=== PATIENT | female | born 1990 | race Hispanic/Latino ===

== ENCOUNTER 2017-04-04 20:47 | Emergency (ER) | payer BC ==
[2017-04-04 20:50] VITALS: BMI 22.2
[2017-04-04 20:53] VITALS: BP 133/93; PULSE 109; RESP 16; TEMP 98.5; O2SAT 98
[2017-04-04] MEDS ORDERED: Sodium Chloride 0.9% 1,000 ML IV STA (21:19)
--- NOTE | 2017-04-04 21:37 | ED PDOC ---
HPI: Head Injury Time Seen by Provider: 04/04/17 21:15 Chief Complaint (Nursing): Abnormal Skin Integrity Chief Complaint (Provider): FALL History Per: Patient (26 Y/O FEMALE WITH ETOH INTOXICATION HERE TODAY FOR EVALUATION OF FACIAL INJURY. NO LOC NOTED. PATIENT NOTED TO HAVE JAW PAIN WITH OPENING JAW. NOTES BROKEN DENTITION AND LOWER LIP LACERATION. DENIES ANY LOOSE TEETH.) Past Medical History Reviewed: Historical Data, Nursing Documentation, Vital Signs Vital Signs: Last Vital Signs Temp 98.5 F 04/04/17 20:51 Pulse 109 H 04/04/17 20:51 Resp 16 04/04/17 20:51 BP 133/93 H 04/04/17 20:51 Pulse Ox 98 04/04/17 20:51 - Family History Family History: States: No Known Family Hx - Allergies Allergies/Adverse Reactions: Allergies Allergy/AdvReac Type Severity Reaction Status Date / Time No Known Allergies Allergy Verified 04/04/17 20:50 Review of Systems ROS Statement: Except As Marked, All Systems Reviewed And Found Negative ENT: Positive for: Mouth Pain, Other (LIP LACERATION) Physical Exam - Reviewed Nursing Documentation Reviewed: Yes Vital Signs Reviewed: Yes - Physical Exam Appears: Positive for: Well, Non-toxic, No Acute Distress Head Exam: Positive for: ATRAUMATIC, NORMAL INSPECTION, NORMOCEPHALIC Skin: Positive for: Normal Color, Warm, DRY Eye Exam: Positive for: EOMI, Normal appearance, PERRL ENT: Positive for: Other (JAW TENDERNESS NOTED WITH OPENING CLOSING JAW. BROKEN DENTITION LEFT UPPER FRONT TOOTH; 1.0 CM LIP LACERATION LOWER LIP). Negative for: Normal ENT Inspection Neck: Positive for: Normal, Painless ROM Cardiovascular/Chest: Positive for: Regular Rate, Rhythm Respiratory: Positive for: CNT, Normal Breath Sounds Gastrointestinal/Abdominal: Positive for: Normal Exam, Bowel Sounds, Soft Back: Positive for: Normal Inspection Extremity: Positive for: Normal ROM Neurologic/Psych: Positive for: Alert, Oriented - ECG O2 Sat by Pulse Oximetry: 98 - Progress ED Course And Treament: HEAD CT: IMPRESSION: No acute intracranial hemorrhage, or suspicious mass effect. Thank you for allowing us to participate in the care of your patient. Disposition - Clinical Impression Clinical Impression: Alcohol intoxication, Lip injury - Patient ED Disposition Is Patient to be Admitted: No - Disposition Disposition: Routine/Home Disposition Time: 00:32 Condition: FAIR Instructions: Care For Your Absorbable Stitches (ED), Acute Dental Trauma (ED) Forms: [employer] (E[place]ian) Procedure: Wound Repair - Time Performed Time Performed: 00:30 - Time Out Time Out: Site verified - Consent Obtained Consent obtained: Verbal - Performed by Performed by: Mid-level Provider - Indications Indication(s):: Laceration - Location Location:: Face Shape:: Stellate Dimensions Length cm: 1.0CM Depth:: Epidermis - Anesthetic Technique Anesthetic Technique: Local Local/Regional Anesthetic:: Lidocaine 1% w/epi - Irrigated Irrigated with ml of normal saline: 50ML - Complexity Complexity:: Simple (one layer) - Wound repair method Sutures:: # (FOUR 6-0 VICRYL SUTURES) - Patient tolerated procedure Patient Tolerated Procedure:: Well
--- NOTE | 2017-04-04 23:16 | CT ---
EXAM: CT Head Without Intravenous Contrast CLINICAL HISTORY: 26 years old, female; Injury or trauma; Fall; Initial encounter; Blunt trauma (contusions or hematomas); Additional info: Head injury TECHNIQUE: Axial computed tomography images of the head/brain without intravenous contrast. All CT scans at this facility use one or more dose reduction techniques, viz.: automated exposure control; ma/kV adjustment per patient size (including targeted exams where dose is matched to indication; i.e. head); or iterative reconstruction technique. Coronal and sagittal reformatted images were created and reviewed. COMPARISON: No relevant prior studies available. FINDINGS: Brain: No acute intracranial hemorrhage. No significant white matter disease. No edema. Ventricles: No significant ventriculomegaly. Bones: No acute displaced fracture. Sinuses: Unremarkable as visualized. No acute sinusitis. Mastoid air cells: Unremarkable as visualized. No mastoid effusion. IMPRESSION: No acute intracranial hemorrhage, or suspicious mass effect.
[2017-04-04] MEDS ORDERED: Lidocaine 1% w Epi 1:100,000 Inj INFIL ONE (23:23)
--- NOTE | 2017-04-04 23:39 | CT ---
EXAM: CT Maxillofacial Without Intravenous Contrast CLINICAL HISTORY: 26 years old, female; Injury or trauma; Fall; Initial encounter; Blunt trauma (contusions or hematomas); Jaw; Not specified; Additional info: R/O jaw FX TECHNIQUE: Axial computed tomography images of the face without intravenous contrast. All CT scans at this facility use one or more dose reduction techniques, viz.: automated exposure control; ma/kV adjustment per patient size (including targeted exams where dose is matched to indication; i.e. head); or iterative reconstruction technique. Coronal and sagittal reformatted images were created and reviewed. COMPARISON: No relevant prior studies available. FINDINGS: Bones/joints: No acute fracture. Soft tissues: Symmetric Orbits: Preserved Sinuses: Unremarkable. No air-fluid levels. IMPRESSION: No acute fracture, as detailed above.
--- NOTE | 2017-04-04 23:40 | CT ---
EXAM: CT Cervical Spine Without Intravenous Contrast CLINICAL HISTORY: 26 years old, female; Injury or trauma; Fall; Initial encounter; Blunt trauma; Additional info: R/O spinal FX TECHNIQUE: Axial computed tomography images of the cervical spine without intravenous contrast. All CT scans at this facility use one or more dose reduction techniques, viz.: automated exposure control; ma/kV adjustment per patient size (including targeted exams where dose is matched to indication; i.e. head); or iterative reconstruction technique. Coronal and sagittal reformatted images were created and reviewed. COMPARISON: No relevant prior studies available. FINDINGS: Vertebrae: No acute fracture. Alignment: Straightening and slight reversal of the normal curvature of the cervical spine, possibly muscular in origin. Discs/spinal canal/neural foramina: No acute findings. Soft tissues: Symmetric Lung apices: The visualized lung apices are clear. IMPRESSION: No acute fracture.
[2017-04-05] MEDS ORDERED: Lidocaine 1% w Epi 1:100,000 Inj ONE (00:09)
== END 2017-04-05 00:51 | disposition home or self-care (01) ==
LOC: H.ER 20:47
DX: S01.511A Laceration without foreign body of lip, initial encounter (principal); W19.XXXA Unspecified fall, initial encounter; F10.129 Alcohol abuse with intoxication, unspecified
CPT/HCPCS: 12011; 70450; 70480; 72125; 81025; 96361; 96374; 96375; 99282; J2405; J7040